=== PATIENT | male | born 1975 | race Caucasian/White ===

== ENCOUNTER 2016-05-21 07:10 | Day surgery (SDC) | payer OTHER ==
[~2016-05-21] VITALS: Ht 175.3 cm; Wt 136.0 kg
[~2016-05-21 07:10] MED LIST: ANALGESIC325 MG PO; ASPIR-TRIN325 M1 PO; ASPIRIN81 M2 PO; AVELOX400 MG PO; Atarax,Vistaril PO; BENTYL20 MG PO; BUSPAR10 MG PO; Buspar PO; CLEOCIN300 MG PO; DENAVIR1.5 GM TP; Desyrel PO; IBUPROFEN600 MG PO; LEVAQUIN750 MG PO; LIPITOR40 MG PO; LO-DOSE ASPIRIN81 M2 PO; MEDROL DOSEPAK4 MG PO; MILK OF MAGN PO; NAPROSYN500 MG PO; NAPROXEN500 MG PO; NOHOMEMEDS; PERCOCET 5/31 TABLET PO; PRAVACHOL40 MG PO; PRILOSEC20 MG PO; PROZAC20 MG PO; PROZAC40 MG PO; PROzac PO; Prozac PO; RANITIDINE HCL150 MG PO; RISPERDAL0.5 MG PO; THERAGRAN1 TABLET PO; THIAMINE HCL100 MG PO; THIAMINE,VITAM100 MG PO; TRAZODONE HCL150 MG PO; Theragran-M,Centrum, PO; Tylenol Regular Stre PO; ULTRAM50 MG PO; VENTOLIN HFA18 GM IH; VITAMIN D31000 UNIT PO; VITAMIN D35000 UNIT PO; ZITHROMAX Z-PA250 MG PO; ZOFRAN ODT4 MG PO; ZOFRAN4 MG PO; cholesterol pill
[2016-05-21 07:38] VITALS: BP 140/84
[2016-05-21 12:20] VITALS: BP 108/65
[2016-05-21 13:30] VITALS: BP 108/67
[2016-05-21 15:45] VITALS: BP 108/78
[2016-05-21 17:45] VITALS: BP 115/79
== END 2016-05-21 17:55 | disposition home or self-care (01) ==
LOC: SDC 07:10
DX: K81.1 Chronic cholecystitis (principal); K76.0 Fatty (change of) liver, not elsewhere classified; E78.5 Hyperlipidemia, unspecified
CPT/HCPCS: 88305; 88307; 88313; J0330; J0690; J1170; J1885; J2250; J2405; J2710; J3010

== ENCOUNTER 2016-11-08 13:03 | Emergency (ER) | payer OTHER ==
[~2016-11-08] VITALS: Ht 172.7 cm; Wt 134.9 kg
[2016-11-08] MEDS ORDERED: NAPROSYN500 MG PO (15:12)
[2016-11-08] MEDS ORDERED: FLEXERIL10 MG PO (15:12)
[2016-11-08 15:52] VITALS: BP 133/88
== END 2016-11-08 15:53 | disposition home or self-care (01) ==
LOC: EME 13:03
DX: M62.830 Muscle spasm of back (principal); E78.5 Hyperlipidemia, unspecified; E11.9 Type 2 diabetes mellitus without complications
CPT/HCPCS: 71020; 99281; 99283

== ENCOUNTER 2018-01-10 13:03 | Emergency (ER) | payer OTHER ==
[~2018-01-10] VITALS: Ht 170.2 cm; Wt 139.0 kg
[~2018-01-10 13:03] MED LIST changes: +FLEXERIL10 MG PO
[2018-01-10] MEDS ORDERED: NEOMYCIN-POLYMY10 M1 BOTH EARS (13:29)
[2018-01-10 13:55] VITALS: BP 106/66
== END 2018-01-10 13:56 | disposition home or self-care (01) ==
LOC: EME 13:03
DX: H60.91 Unspecified otitis externa, right ear (principal); Z88.0 Allergy status to penicillin; Z88.5 Allergy status to narcotic agent
CPT/HCPCS: 99281; 99283